=== PATIENT | male | born 1985 | race Caucasian/White ===

== ENCOUNTER 2016-08-05 06:28 | Day surgery (SDC) | payer MEDICAID ==
[2016-08-02 12:50] LABS: HEMATOCRIT 39.7 % (42.0-54.0); HEMOGLOBIN 13.2 g/dL (13.5-17.5); MCH 30.3 pg (26.0-34.0); MCHC 33.2 g/dL (31.0-37.0); MCV 91.3 fL (80.0-100.0); RBC 4.35 10x6/uL (4.20-6.10); RDW 13.5 % (11.5-14.5); WBC 11.7 10x3/uL (4.8-10.8)
[2016-08-02 13:04] LABS: CALC OSMOLALITY 281 mosm/kg (275-300); CALCIUM 9.2 mg/dL (8.5-10.1); CARBON DIOXIDE 31.5 mmol/L (21.0-32.0); CHLORIDE - SERUM 101 mmol/L (98-107); CREATININE - SERUM 0.9 mg/dL (0.6-1.3); GLUCOSE 149 mg/dL (74-106); POTASSIUM - SERUM 3.8 mmol/L (3.5-5.1); SODIUM 139 mmol/L (136-145); UREA NITROGEN 15 mg/dL (7-18); eGFR NON AFRICAN AMERICAN > 90 mL/min (90-120)
[~2016-08-05] VITALS: Ht 185.4 cm; Wt 247.2 kg
[2016-08-05 05:54] VITALS: BP 161/103; Ht 185.4 cm; Wt 247.2 kg
[~2016-08-05 06:28] MED LIST: GLUCOPHAGE500 MG PO; HYDROCODONE-APA1 TAB PO; LISINOPRIL-HCTZ1 T13 PO; OMEPRAZOLE20 M1 PO
[2016-08-05] MEDS ORDERED: OXYCODONE HCL5 MG PO (09:09)
[2016-08-05] MEDS ORDERED: CYCLOBENZAPRINE10 MG PO (09:10)
--- NOTE | 2016-08-05 09:50 | OP ---
PATIENT NAME: MÓNICA MCADAMS MEDICAL RECORD: [id number] LOCATION:[facility] ADMISSION DATE: SURGEON: ASH SHARPE MD DATE OF OPERATION: 08/05/2016 SURGEON: Ash Sharpe MD PREOPERATIVE DIAGNOSIS: Incarcerated ventral hernia. POSTOPERATIVE DIAGNOSIS: Incarcerated ventral hernia. PROCEDURE PERFORMED: Laparoscopic incarcerated ventral hernia repair with Ventralight ST mesh. ANESTHESIA: General. Case was clean. ESTIMATED BLOOD LOSS: 25 cc. SPECIMENS: None. COMPLICATIONS: None. OPERATIVE COURSE: After consent was obtained, the patient was taken to the operating room and placed in the supine position on the operative table. Next, general anesthesia was given via endotracheal intubation after a timeout was taken to confirm the correct patient and procedure. The abdomen was prepped and draped in typical sterile fashion. Ioban dressings were placed. Local anesthetic was injected in the left upper quadrant at Estevez's point. A stab incision was made with 11-blade scalpel. Using a 5-mm bladeless optical trocar, the abdomen was entered under direct laparoscopic vision. Adequate pneumoperitoneum was achieved. The abdominal cavity was inspected. No evidence of bowel injury. No evidence of bleeding. There was a midline ventral hernia defect with irreducible greater omentum within the hernia defect, which was approximately 5 cm in size. At this time, all remaining trocars were placed, 12-mm trocar in the left lateral quadrant, 5-mm trocar and the left lower quadrant and 5-mm trocar in the right lateral quadrant. The greater omentum was reduced through the hernia defect. The hernia sac was excised using electrocautery. Once the hernia sac and greater omentum were reduced, the preperitoneal fat was bluntly dissected from the anterior abdominal wall. An 8-inch Ventralight ST mesh was placed through the 12-mm trocar into the abdomen. A Darnell-Alfonso was used to grasp the Echo positioning system. The Echo positioning system was inflated. The mesh was held firmly against the anterior abdominal wall. The mesh was then secured in a double crown fashion using the OptiFix Tacker. Echo positioning system was then removed in its entirety to the 12-mm trocar, the abdominal cavity was inspected. No evidence of bowel injury. No evidence of bleeding. The mesh was secured to the anterior abdominal wall with OptiFix. At the end of the case, at this time, again the abdominal cavity was inspected. No evidence of bowel injury. No evidence of bleeding. All remaining instruments were removed. The abdomen was desufflated. Trocars removed. Skin was closed with 4-0 Monocryl, Mastisol and Steri-Strips. At the end of the case, all needle and instrument counts were correct. No complications occurred. The patient was extubated and transferred to the PACU in stable condition. 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
== END 2016-08-05 12:50 | disposition home or self-care (01) ==
LOC: D.OPS 06:28 → D.PAN 07:30 → D.OPS 07:30
PROVIDERS: Anesthesiology
DX: K43.6 Other and unspecified ventral hernia with obstruction, without gangrene (principal)

== ENCOUNTER → 2019-03-25 09:13 | Outpatient (CLI) | payer MEDICARE ==
[2016-08-05 05:54] VITALS: BMI 72.0
[~2019-03-25 09:13] MED LIST changes: +CYCLOBENZAPRINE10 MG PO; +OXYCODONE HCL5 MG PO
== END | disposition home or self-care (01) ==
LOC: D.US 09:13
PROVIDERS: ATTEND Nurse Practitioner Family
DX: M79.661 Pain in right lower leg (principal)